=== PATIENT | male | born 1960 | race Caucasian/White ===

== ENCOUNTER 2020-02-24 19:43 | Inpatient (IN) | payer MEDICAID ==
[~2020-02-24] VITALS: Ht 165.1 cm; Wt 69.9 kg
[2020-02-24] MEDS ORDERED: LISI-660 PO (19:58)
[2020-02-24] MEDS ORDERED: METF-961 PO (19:58)
[2020-02-24] MEDS ORDERED: SODIUM CHLORIDE 0.9% 2,000 ML IV ONE (20:45)
[2020-02-24] MEDS ORDERED: ACETAMINOPHEN 500 MG TABLET PO ONE (21:00)
[2020-02-24] MEDS ORDERED: KETOROLAC TROMETHAMINE 30 MG/ML VIAL IVP ONE (21:00)
[2020-02-24 21:18] LABS: HEMATOCRIT 34.3 % (41-53); HEMOGLOBIN 11.8 g/dL (13.5-17.5); MEAN CORPUSCULAR HEMOGLOBIN 32.5 pg (26.0-34.0); MEAN CORPUSCULAR HGB CONC 34.4 G/dL (31.0-37.0); MEAN CORPUSCULAR VOLUME 95 fL (80-100); PLATELET COUNT (AUTO) 171 K/uL (150-450); RED BLOOD CELL COUNT(AUTO) 3.63 MIL/uL (4.50-5.90); RED CELL DISTRIBUTION WIDTH 12.4 % (11.5-14.5)
[2020-02-24 21:28] LABS: CALCIUM, TOTAL 9.1 mg/dL (8.8-10.5); CREATININE 1.43 mg/dL (0.60-1.30); POTASSIUM 3.6 mmol/L (3.5-5.1)
[2020-02-24 21:38] LABS: LACTIC ACID 1.9 mmol/L (0.4-2.0)
[2020-02-24 21:51] LABS: BILIRUBIN,TOTAL 0.9 mg/dL (0.1-1.0); TOTAL PROTEIN, SERUM 8.3 g/dL (6.4-8.2)
[2020-02-24 22:06] LABS: BAND NEUTROPHILS % (MANUAL) 20 % (0-5); LYMPHOCYTES % (MANUAL) 3 % (22-44); MONOCYTES % (MANUAL) 5 % (2-9); SEGMENTED NEUTROPHILS % 72 % (40-70)
[2020-02-24] MEDS ORDERED: CefTRIAXone 1 GM/DEXTROSE 50 ML IV ONE (23:45)
[2020-02-24 23:47] LABS: APPEARANCE,URINE CLEAR (CLEAR); BILIRUBIN,URINE NEGATIVE (NEGATIVE); GLUCOSE, URINE (UA) NEGATIVE (NEGATIVE); KETONES,URINE NEGATIVE (NEGATIVE); LEUKOCYTE ESTERASE ,URINE NEGATIVE (NEGATIVE); NITRATE,URINE NEGATIVE (NEGATIVE); OCCULT BLOOD,URINE NEGATIVE (NEGATIVE); PROTEIN,URINE SEE CONFIRM (NEGATIVE); UROBILINOGEN,URINE 0.2 mg/dL (<=1.0)
[2020-02-25 00:04] LABS: SULFOSALICYLIC ACID,URINE 3+ (Negative)
[2020-02-25 00:05] LABS: BACTERIA,URINE None Seen /HPF (None Seen); RBC,URINE 0-2 /HPF (0-2); SQUAMOUS EPITHELIAL CELL,UR Rare /LPF (None Seen); WBC,URINE None Seen /HPF (0-5)
[2020-02-25] MEDS ORDERED: VANCOMYCIN HCL 1 GM/D5% WATER 200 ML IV ONE (00:15)
[2020-02-25] MEDS ORDERED: ZOLPIDEM TARTRATE 5 MG TABLET PO PRN (00:30)
[2020-02-25] MEDS ORDERED: MAGNESIUM HYDROXIDE SUSPENSION 30 ML UDCUP PO PRN (00:30)
[2020-02-25] MEDS ORDERED: BISACODYL 10 MG RECTAL RECTAL SUPPOSITORY PR PRN (00:30)
[2020-02-25] MEDS ORDERED: ALBUTEROL SULFATE 2.5 MG/0.5 ML NEB SOLUTION NEB PRN (00:30)
[2020-02-25] MEDS ORDERED: IPRATROPIUM BROMIDE 0.5 MG/2.5 ML NEB SOLUTION NEB PRN (00:30)
[2020-02-25 02:53] VITALS: BP 134/54
[2020-02-25] MEDS: ONDANSETRON HCL 4 MG/2 ML VIAL IVP PRN (04:05)
[2020-02-25] MEDS: ACETAMINOPHEN 325 MG TABLET PO PRN ×3 (04:09→18:40)
[2020-02-25 06:39] VITALS: BP 107/56
[2020-02-25 07:01] LABS: GLUCOMETER DEV NAME(LOC) 6S.1; GLUCOSE,POINT OF CARE 138 MG/DL (70-110)
[2020-02-25 07:55] VITALS: BP 97/56
[2020-02-25] MEDS: HEPARIN SODIUM,PORCINE 5,000 UNITS/ML VIAL SQ SCH ×2 (08:57→16:22)
[2020-02-25] MEDS ORDERED: DEXTROSE 50%-WATER 25 GM/50 ML SYRINGE IVP PRN (10:15)
[2020-02-25] MEDS: SODIUM CHLORIDE 0.45% 1,000 ML IV SCH (11:21)
[2020-02-25 13:10] VITALS: BP 120/70
[2020-02-25] MEDS: LEVOFLOXACIN 500 MG/D5% WATER 100 ML IV SCH (13:11)
[2020-02-25] MEDS: MetroNIDAZOLE 500 MG/NACL 100 ML IV SCH ×2 (14:33→21:25)
[2020-02-25 17:32] LABS: GLUCOMETER DEV NAME(LOC) 6S.1; GLUCOSE,POINT OF CARE 132 MG/DL (70-110)
[2020-02-25 19:58] LABS: GLUCOMETER DEV NAME(LOC) 4E.2; GLUCOSE,POINT OF CARE 113 MG/DL (70-110)
[2020-02-25 20:11] VITALS: BP 115/69
[2020-02-25 21:19] LABS: HEMATOCRIT 31.6 % (41-53); HEMOGLOBIN 10.4 g/dL (13.5-17.5); MEAN CORPUSCULAR HEMOGLOBIN 31.3 pg (26.0-34.0); MEAN CORPUSCULAR VOLUME 95 fL (80-100); PLATELET COUNT (AUTO) 147 K/uL (150-450); RED BLOOD CELL COUNT(AUTO) 3.33 MIL/uL (4.50-5.90); RED CELL DISTRIBUTION WIDTH 13.3 % (11.5-14.5)
[2020-02-25 21:28] LABS: ANION GAP 9 mmol/L (8-16); CARBON DIOXIDE 23 mmol/L (22-29); CHLORIDE 102 mmol/L (98-107); CREATININE 1.08 mg/dL (0.60-1.30); GLOMERULAR FILTR. RATE CALC > 60 mL/min (>60); GLUCOSE,RANDOM 120 mg/dL (70-110); POTASSIUM 3.9 mmol/L (3.5-5.1); SODIUM SERUM 134 mmol/L (136-145); UREA NITROGEN, BLOOD 23 mg/dL (7-18)
[2020-02-25 21:36] LABS: ALBUMIN 2.9 g/dL (3.4-5.0); ALKALINE PHOSPHATASE 65 U/L (46-116); ASPARTATE AMINOTRANSFERASE 49 U/L (15-37); BAND NEUTROPHILS % (MANUAL) 16 % (0-5); BILIRUBIN,TOTAL 0.6 mg/dL (0.1-1.0); LYMPHOCYTES % (MANUAL) 6 % (22-44); MONOCYTES % (MANUAL) 4 % (2-9); SEGMENTED NEUTROPHILS % 74 % (40-70); TOTAL PROTEIN, SERUM 6.7 g/dL (6.4-8.2)
[2020-02-25 21:37] LABS: PLATELET MORPHOLOGY COMMENT LARGE PLTS PRESENT
[2020-02-25 21:52] LABS: GLUCOMETER DEV NAME(LOC) 4E.2; GLUCOSE,POINT OF CARE 106 MG/DL (70-110)
[2020-02-25 22:18] LABS: ALANINE AMINOTRANSFERASE 86 U/L (12-78)
[2020-02-25] MEDS ORDERED: CefTRIAXone 1 GM/DEXTROSE 50 ML IV SCH (23:00)
[2020-02-25 23:54] VITALS: BP 100/57
[2020-02-26] MEDS: HEPARIN SODIUM,PORCINE 5,000 UNITS/ML VIAL SQ SCH ×3 (00:38→16:14)
[2020-02-26 04:33] VITALS: BP 121/63
[2020-02-26] MEDS: ACETAMINOPHEN 325 MG TABLET PO PRN (04:59)
[2020-02-26] MEDS: MetroNIDAZOLE 500 MG/NACL 100 ML IV SCH (05:00)
[2020-02-26] MEDS: SODIUM CHLORIDE 0.45% 1,000 ML IV SCH ×2 (05:00→21:00)
[2020-02-26 05:27] LABS: GLUCOMETER DEV NAME(LOC) 4E.2; GLUCOSE,POINT OF CARE 121 MG/DL (70-110)
[2020-02-26 06:32] LABS: HEMATOCRIT 29.6 % (41-53); HEMOGLOBIN 10.4 g/dL (13.5-17.5); MEAN CORPUSCULAR HEMOGLOBIN 32.9 pg (26.0-34.0); MEAN CORPUSCULAR VOLUME 94 fL (80-100); PLATELET COUNT (AUTO) 148 K/uL (150-450); RED BLOOD CELL COUNT(AUTO) 3.15 MIL/uL (4.50-5.90)
[2020-02-26 06:43] LABS: ALANINE AMINOTRANSFERASE 76 U/L (12-78); ALBUMIN 2.8 g/dL (3.4-5.0); ALKALINE PHOSPHATASE 64 U/L (46-116); ANION GAP 11 mmol/L (8-16); ASPARTATE AMINOTRANSFERASE 40 U/L (15-37); BILIRUBIN,TOTAL 0.4 mg/dL (0.1-1.0); CARBON DIOXIDE 21 mmol/L (22-29); CHLORIDE 101 mmol/L (98-107); CREATININE 1.09 mg/dL (0.60-1.30); GLOMERULAR FILTR. RATE CALC > 60 mL/min (>60); GLUCOSE,RANDOM 139 mg/dL (70-110); POTASSIUM 3.4 mmol/L (3.5-5.1); SODIUM SERUM 133 mmol/L (136-145); TOTAL PROTEIN, SERUM 6.4 g/dL (6.4-8.2); UREA NITROGEN, BLOOD 17 mg/dL (7-18)
[2020-02-26 07:20] VITALS: BP 114/61
[2020-02-26 08:34] LABS: BAND NEUTROPHILS % (MANUAL) 8 % (0-5); LYMPHOCYTES % (MANUAL) 20 % (22-44); MONOCYTES % (MANUAL) 1 % (2-9); SEGMENTED NEUTROPHILS % 71 % (40-70)
[2020-02-26] MEDS: LISINOPRIL 5 MG TABLET PO SCH (09:02)
[2020-02-26 11:00] VITALS: BP 106/52
[2020-02-26] MEDS: LEVOFLOXACIN 500 MG/D5% WATER 100 ML IV SCH (12:11)
[2020-02-26] MEDS: INSULIN LISPRO 100 UNITS/ML SQ PRN ×3 (12:39→21:10)
[2020-02-26 13:26] LABS: GLUCOMETER DEV NAME(LOC) 4E.2; GLUCOSE,POINT OF CARE 191 MG/DL (70-110)
[2020-02-26] MEDS: PIPERACILLIN/TAZO 3.375 GM/D5W 50 ML IV SCH ×2 (14:34→17:15)
[2020-02-26 15:10] VITALS: BP 110/54
[2020-02-26 17:30] LABS: GLUCOMETER DEV NAME(LOC) 4E.2; GLUCOSE,POINT OF CARE 160 MG/DL (70-110)
[2020-02-26 20:45] VITALS: BP 138/76
[2020-02-26 21:20] LABS: GLUCOMETER DEV NAME(LOC) 4E.2; GLUCOSE,POINT OF CARE 193 MG/DL (70-110)
[2020-02-27] MEDS: HEPARIN SODIUM,PORCINE 5,000 UNITS/ML VIAL SQ SCH ×3 (00:26→15:53)
[2020-02-27] MEDS: PIPERACILLIN/TAZO 3.375 GM/D5W 50 ML IV SCH ×4 (00:27→18:11)
[2020-02-27 04:44] VITALS: BP 134/66
[2020-02-27 06:30] LABS: GLUCOMETER DEV NAME(LOC) 6S.1; GLUCOSE,POINT OF CARE 156 MG/DL (70-110)
[2020-02-27] MEDS: INSULIN LISPRO 100 UNITS/ML SQ PRN ×4 (06:32→20:36)
[2020-02-27 06:33] LABS: BASOPHILS % (AUTO) 0.3 % (0.0-2.0); EOSINOPHILS % (AUTO) 0.7 % (1.0-6.0); HEMATOCRIT 31.2 % (41-53); HEMOGLOBIN 10.9 g/dL (13.5-17.5); LYMPHOCYTES % (AUTO) 15.3 % (22.0-44.0); MEAN CORPUSCULAR HEMOGLOBIN 32.6 pg (26.0-34.0); MEAN CORPUSCULAR VOLUME 93 fL (80-100); MONOCYTES # (AUTO) 0.4 K/uL (0.1-1.0); MONOCYTES % (AUTO) 6.5 % (2.0-9.0); NEUTROPHILS # (AUTO) 5.1 K/uL (1.8-7.7); NEUTROPHILS % (AUTO) 77.2 % (40.0-70.0); PLATELET COUNT (AUTO) 158 K/uL (150-450); RED BLOOD CELL COUNT(AUTO) 3.34 MIL/uL (4.50-5.90); RED CELL DISTRIBUTION WIDTH 13.3 % (11.5-14.5)
[2020-02-27 06:54] LABS: ALANINE AMINOTRANSFERASE 60 U/L (12-78); ALBUMIN 2.9 g/dL (3.4-5.0); ALKALINE PHOSPHATASE 80 U/L (46-116); ANION GAP 9 mmol/L (8-16); ASPARTATE AMINOTRANSFERASE 30 U/L (15-37); BILIRUBIN,TOTAL 0.4 mg/dL (0.1-1.0); CALCIUM, TOTAL 8.5 mg/dL (8.8-10.5); CARBON DIOXIDE 23 mmol/L (22-29); CHLORIDE 102 mmol/L (98-107); CREATININE 1.12 mg/dL (0.60-1.30); GLOMERULAR FILTR. RATE CALC > 60 mL/min (>60); GLUCOSE,RANDOM 156 mg/dL (70-110); POTASSIUM 3.6 mmol/L (3.5-5.1); SODIUM SERUM 134 mmol/L (136-145); TOTAL PROTEIN, SERUM 6.8 g/dL (6.4-8.2); UREA NITROGEN, BLOOD 11 mg/dL (7-18)
[2020-02-27 08:26] VITALS: BP 128/67
[2020-02-27] MEDS: LISINOPRIL 5 MG TABLET PO SCH (08:33)
[2020-02-27 11:51] VITALS: BP 100/66
[2020-02-27] MEDS: LEVOFLOXACIN 500 MG/D5% WATER 100 ML IV SCH (12:51)
[2020-02-27 13:59] LABS: GLUCOMETER DEV NAME(LOC) 6S.1; GLUCOSE,POINT OF CARE 202 MG/DL (70-110)
[2020-02-27] MEDS: SODIUM CHLORIDE 0.45% 1,000 ML IV SCH (14:39)
[2020-02-27 15:10] VITALS: BP 141/73
[2020-02-27 18:58] LABS: GLUCOMETER DEV NAME(LOC) 4E.2; GLUCOSE,POINT OF CARE 213 MG/DL (70-110)
[2020-02-27 19:35] VITALS: BP 100/56
[2020-02-27 21:44] LABS: GLUCOMETER DEV NAME(LOC) 6S.1; GLUCOSE,POINT OF CARE 208 MG/DL (70-110)
[2020-02-28] VITALS (7 sets, daily range): BP systolic 113–153; BP diastolic 56–73
[2020-02-28] MEDS: HEPARIN SODIUM,PORCINE 5,000 UNITS/ML VIAL SQ SCH ×4 (00:04→23:37)
[2020-02-28] MEDS: PIPERACILLIN/TAZO 3.375 GM/D5W 50 ML IV SCH ×3 (00:04→12:30)
[2020-02-28] MEDS: INSULIN LISPRO 100 UNITS/ML SQ PRN ×4 (05:54→20:30)
[2020-02-28] MEDS: SODIUM CHLORIDE 0.45% 1,000 ML IV SCH (06:00)
[2020-02-28 06:46] LABS: GLUCOMETER DEV NAME(LOC) 6S.1; GLUCOSE,POINT OF CARE 144 MG/DL (70-110)
[2020-02-28 06:47] LABS: BASOPHILS % (AUTO) 0.6 % (0.0-2.0); EOSINOPHILS % (AUTO) 0.8 % (1.0-6.0); HEMATOCRIT 32.6 % (41-53); HEMOGLOBIN 11.2 g/dL (13.5-17.5); LYMPHOCYTES # (AUTO) 1.2 K/uL (1.0-4.8); LYMPHOCYTES % (AUTO) 21.8 % (22.0-44.0); MEAN CORPUSCULAR HEMOGLOBIN 32.1 pg (26.0-34.0); MEAN CORPUSCULAR HGB CONC 34.2 G/dL (31.0-37.0); MEAN CORPUSCULAR VOLUME 94 fL (80-100); MONOCYTES # (AUTO) 0.4 K/uL (0.1-1.0); NEUTROPHILS # (AUTO) 3.7 K/uL (1.8-7.7); NEUTROPHILS % (AUTO) 68.8 % (40.0-70.0); PLATELET COUNT (AUTO) 178 K/uL (150-450); RED BLOOD CELL COUNT(AUTO) 3.48 MIL/uL (4.50-5.90); RED CELL DISTRIBUTION WIDTH 12.9 % (11.5-14.5)
[2020-02-28 07:21] LABS: ANION GAP 9 mmol/L (8-16); CARBON DIOXIDE 26 mmol/L (22-29); CHLORIDE 102 mmol/L (98-107); CREATININE 1.08 mg/dL (0.60-1.30); GLUCOSE,RANDOM 158 mg/dL (70-110); POTASSIUM 3.7 mmol/L (3.5-5.1); SODIUM SERUM 137 mmol/L (136-145); UREA NITROGEN, BLOOD 13 mg/dL (7-18)
[2020-02-28 07:22] LABS: ALANINE AMINOTRANSFERASE 79 U/L (12-78); ALKALINE PHOSPHATASE 97 U/L (46-116); ASPARTATE AMINOTRANSFERASE 53 U/L (15-37); BILIRUBIN,TOTAL 0.3 mg/dL (0.1-1.0); GLOMERULAR FILTR. RATE CALC > 60 mL/min (>60); TOTAL PROTEIN, SERUM 7.1 g/dL (6.4-8.2)
[2020-02-28] MEDS: LISINOPRIL 5 MG TABLET PO SCH (08:24)
[2020-02-28] MEDS: LEVOFLOXACIN 500 MG/D5% WATER 100 ML IV SCH (13:13)
[2020-02-28 15:08] LABS: GLUCOMETER DEV NAME(LOC) 6S.1; GLUCOSE,POINT OF CARE 193 MG/DL (70-110)
[2020-02-28] MEDS ORDERED: TraMADol HCL 50 MG TABLET PO PRN (17:45)
[2020-02-28 19:00] LABS: GLUCOMETER DEV NAME(LOC) 4E.2; GLUCOSE,POINT OF CARE 212 MG/DL (70-110)
[2020-02-28] MEDS: HYDROCODONE/ACETAMINOPHEN 5-325 MG TABLET PO PRN (20:27)
[2020-02-29 04:37] VITALS: BP 136/75
[2020-02-29] MEDS ORDERED: IOVERSOL 350 MG/ML 100 ML VIAL ONE (04:39)
[2020-02-29] MEDS ORDERED: SODIUM CHLORIDE 0.9% 100 ML ONE (04:39)
[2020-02-29 04:46] LABS: GLUCOMETER DEV NAME(LOC) 4E.2; GLUCOSE,POINT OF CARE 166 MG/DL (70-110)
[2020-02-29] MEDS: ONDANSETRON HCL 4 MG/2 ML VIAL IVP PRN (04:46)
[2020-02-29 07:00] LABS: BASOPHILS % (AUTO) 0.8 % (0.0-2.0); EOSINOPHILS % (AUTO) 1.9 % (1.0-6.0); HEMATOCRIT 34.4 % (41-53); HEMOGLOBIN 11.6 g/dL (13.5-17.5); LYMPHOCYTES # (AUTO) 1.3 K/uL (1.0-4.8); LYMPHOCYTES % (AUTO) 30.4 % (22.0-44.0); MEAN CORPUSCULAR HEMOGLOBIN 31.6 pg (26.0-34.0); MEAN CORPUSCULAR HGB CONC 33.6 G/dL (31.0-37.0); MEAN CORPUSCULAR VOLUME 94 fL (80-100); MONOCYTES # (AUTO) 0.5 K/uL (0.1-1.0); MONOCYTES % (AUTO) 10.9 % (2.0-9.0); NEUTROPHILS # (AUTO) 2.4 K/uL (1.8-7.7); PLATELET COUNT (AUTO) 187 K/uL (150-450); RED BLOOD CELL COUNT(AUTO) 3.65 MIL/uL (4.50-5.90)
[2020-02-29 07:40] LABS: ALANINE AMINOTRANSFERASE 178 U/L (12-78); ALBUMIN 3.2 g/dL (3.4-5.0); ALKALINE PHOSPHATASE 102 U/L (46-116); ANION GAP 9 mmol/L (8-16); ASPARTATE AMINOTRANSFERASE 141 U/L (15-37); BILIRUBIN,TOTAL 0.4 mg/dL (0.1-1.0); CALCIUM, TOTAL 9.3 mg/dL (8.8-10.5); CARBON DIOXIDE 26 mmol/L (22-29); CHLORIDE 100 mmol/L (98-107); CREATININE 1.02 mg/dL (0.60-1.30); GLOMERULAR FILTR. RATE CALC > 60 mL/min (>60); GLUCOSE,RANDOM 144 mg/dL (70-110); POTASSIUM 3.5 mmol/L (3.5-5.1); SODIUM SERUM 135 mmol/L (136-145); TOTAL PROTEIN, SERUM 7.5 g/dL (6.4-8.2); UREA NITROGEN, BLOOD 12 mg/dL (7-18)
[2020-02-29 08:02] LABS: GLUCOMETER DEV NAME(LOC) 6S.1; GLUCOSE,POINT OF CARE 132 MG/DL (70-110)
[2020-02-29] MEDS: LISINOPRIL 5 MG TABLET PO SCH (08:11)
[2020-02-29] MEDS: HEPARIN SODIUM,PORCINE 5,000 UNITS/ML VIAL SQ SCH ×3 (08:12→23:27)
[2020-02-29 08:33] VITALS: BP 129/72
[2020-02-29] MEDS: INSULIN LISPRO 100 UNITS/ML SQ PRN ×3 (11:41→22:03)
[2020-02-29] MEDS: LEVOFLOXACIN 500 MG/D5% WATER 100 ML IV SCH (13:08)
[2020-02-29] MEDS: MetroNIDAZOLE 500 MG/NACL 100 ML IV SCH ×2 (15:15→21:51)
[2020-02-29 15:31] VITALS: BP 129/65
[2020-02-29 17:55] LABS: GLUCOMETER DEV NAME(LOC) 6S.1; GLUCOSE,POINT OF CARE 257 MG/DL (70-110)
[2020-02-29 17:56] LABS: GLUCOMETER DEV NAME(LOC) 6S.1; GLUCOSE,POINT OF CARE 190 MG/DL (70-110)
[2020-02-29 19:55] VITALS: BP 99/59
[2020-02-29] MEDS: ACETAMINOPHEN 325 MG TABLET PO PRN (20:10)
[2020-02-29 23:00] LABS: GLUCOMETER DEV NAME(LOC) 4E.2; GLUCOSE,POINT OF CARE 187 MG/DL (70-110)
[2020-02-29 23:31] VITALS: BP 106/57
[2020-03-01 05:04] VITALS: BP 117/63
[2020-03-01] MEDS: MetroNIDAZOLE 500 MG/NACL 100 ML IV SCH ×3 (05:29→21:38)
[2020-03-01] MEDS ORDERED: SODIUM CHLORIDE 0.9% 1,000 ML ONE ×2 (05:36→10:38)
[2020-03-01 06:19] LABS: GLUCOMETER DEV NAME(LOC) 4E.2; GLUCOSE,POINT OF CARE 138 MG/DL (70-110)
[2020-03-01 06:30] LABS: BASOPHILS % (AUTO) 0.4 % (0.0-2.0); EOSINOPHILS % (AUTO) 1.3 % (1.0-6.0); HEMATOCRIT 32.7 % (41-53); HEMOGLOBIN 11.4 g/dL (13.5-17.5); LYMPHOCYTES # (AUTO) 1.7 K/uL (1.0-4.8); LYMPHOCYTES % (AUTO) 23.5 % (22.0-44.0); MEAN CORPUSCULAR HEMOGLOBIN 32.4 pg (26.0-34.0); MEAN CORPUSCULAR HGB CONC 34.9 G/dL (31.0-37.0); MEAN CORPUSCULAR VOLUME 93 fL (80-100); MONOCYTES # (AUTO) 0.6 K/uL (0.1-1.0); NEUTROPHILS # (AUTO) 4.9 K/uL (1.8-7.7); NEUTROPHILS % (AUTO) 66.8 % (40.0-70.0); PLATELET COUNT (AUTO) 211 K/uL (150-450); RED BLOOD CELL COUNT(AUTO) 3.53 MIL/uL (4.50-5.90)
[2020-03-01 06:52] LABS: ALANINE AMINOTRANSFERASE 156 U/L (12-78); ALBUMIN 3.2 g/dL (3.4-5.0); ALKALINE PHOSPHATASE 94 U/L (46-116); ANION GAP 7 mmol/L (8-16); ASPARTATE AMINOTRANSFERASE 84 U/L (15-37); BILIRUBIN,TOTAL 0.4 mg/dL (0.1-1.0); CALCIUM, TOTAL 9.4 mg/dL (8.8-10.5); CARBON DIOXIDE 27 mmol/L (22-29); CHLORIDE 101 mmol/L (98-107); CREATININE 1.11 mg/dL (0.60-1.30); GLOMERULAR FILTR. RATE CALC > 60 mL/min (>60); GLUCOSE,RANDOM 162 mg/dL (70-110); POTASSIUM 3.8 mmol/L (3.5-5.1); SODIUM SERUM 135 mmol/L (136-145); TOTAL PROTEIN, SERUM 7.3 g/dL (6.4-8.2); UREA NITROGEN, BLOOD 18 mg/dL (7-18)
[2020-03-01] MEDS: HEPARIN SODIUM,PORCINE 5,000 UNITS/ML VIAL SQ SCH ×3 (07:47→23:21)
[2020-03-01] MEDS: LISINOPRIL 5 MG TABLET PO SCH (08:04)
[2020-03-01 08:15] VITALS: BP 133/66
[2020-03-01] MEDS ORDERED: IOTHALAMATE MEGLUMINE 600 MG/ML 50 ML VIAL IVP ONE (10:38)
[2020-03-01 11:34] LABS: PROTHROMBIN TIME 10.1 SEC (9.4-11.6)
[2020-03-01] MEDS ORDERED: ONDANSETRON HCL 4 MG/2 ML VIAL IVP ONE (12:00)
[2020-03-01] MEDS ORDERED: DEXAMETHASONE SOD PHOS 4 MG/ML VIAL IVP ONE (12:00)
[2020-03-01] MEDS ORDERED: PROPOFOL 1% 20 ML VIAL IVP ONE (12:00)
[2020-03-01] MEDS ORDERED: FentaNYL CITRATE-PF 100 MCG/2 ML VIAL IVP ONE (12:00)
[2020-03-01] MEDS ORDERED: LIDOCAINE/PF 2% 5 ML VIAL INJ ONE (12:00)
[2020-03-01] MEDS ORDERED: MIDAZOLAM HCL 2 MG/2 ML VIAL IVP ONE (12:00)
[2020-03-01 13:21] VITALS: BP 144/69
[2020-03-01] MEDS: MORPHINE SULFATE 2 MG/ML SYRINGE IVP PRN ×2 (13:30→15:47)
[2020-03-01] MEDS: LEVOFLOXACIN 500 MG/D5% WATER 100 ML IV SCH (13:31)
[2020-03-01 15:05] VITALS: BP 124/60
[2020-03-01] MEDS: ONDANSETRON HCL 4 MG/2 ML VIAL IVP PRN (17:39)
[2020-03-01] MEDS: HYDROCODONE/ACETAMINOPHEN 5-325 MG TABLET PO PRN (17:40)
[2020-03-01] MEDS: INSULIN LISPRO 100 UNITS/ML SQ PRN ×2 (17:44→20:33)
[2020-03-01 18:38] LABS: GLUCOMETER DEV NAME(LOC) 4E.2; GLUCOSE,POINT OF CARE 192 MG/DL (70-110)
[2020-03-01 20:00] VITALS: BP 127/57
[2020-03-01] MEDS: OXYGEN THERAPY IH SCH (20:00)
[2020-03-01] MEDS: SODIUM CHLORIDE 0.9% 1,000 ML IV SCH (21:38)
[2020-03-01 22:01] LABS: GLUCOMETER DEV NAME(LOC) 6S.1; GLUCOSE,POINT OF CARE 184 MG/DL (70-110)
[2020-03-01 23:50] VITALS: BP 111/58
[2020-03-02] MEDS: ONDANSETRON HCL 4 MG/2 ML VIAL IVP PRN (04:06)
[2020-03-02 05:34] VITALS: BP 138/66
[2020-03-02] MEDS: MetroNIDAZOLE 500 MG/NACL 100 ML IV SCH ×3 (06:08→22:16)
[2020-03-02] MEDS: INSULIN LISPRO 100 UNITS/ML SQ PRN ×4 (06:14→20:43)
[2020-03-02 06:42] LABS: BASOPHILS % (AUTO) 0.4 % (0.0-2.0); EOSINOPHILS % (AUTO) 0.3 % (1.0-6.0); HEMATOCRIT 31.9 % (41-53); HEMOGLOBIN 10.8 g/dL (13.5-17.5); LYMPHOCYTES # (AUTO) 0.9 K/uL (1.0-4.8); MEAN CORPUSCULAR HEMOGLOBIN 31.9 pg (26.0-34.0); MEAN CORPUSCULAR HGB CONC 33.9 G/dL (31.0-37.0); MEAN CORPUSCULAR VOLUME 94 fL (80-100); MONOCYTES # (AUTO) 0.5 K/uL (0.1-1.0); NEUTROPHILS # (AUTO) 3.9 K/uL (1.8-7.7); NEUTROPHILS % (AUTO) 73.3 % (40.0-70.0); PLATELET COUNT (AUTO) 223 K/uL (150-450); RED BLOOD CELL COUNT(AUTO) 3.39 MIL/uL (4.50-5.90); RED CELL DISTRIBUTION WIDTH 13.1 % (11.5-14.5)
[2020-03-02 06:55] LABS: ALANINE AMINOTRANSFERASE 435 U/L (12-78); ALKALINE PHOSPHATASE 217 U/L (46-116); ANION GAP 9 mmol/L (8-16); ASPARTATE AMINOTRANSFERASE 367 U/L (15-37); BILIRUBIN,TOTAL 2.7 mg/dL (0.1-1.0); CALCIUM, TOTAL 8.9 mg/dL (8.8-10.5); CARBON DIOXIDE 28 mmol/L (22-29); CHLORIDE 102 mmol/L (98-107); CREATININE 0.98 mg/dL (0.60-1.30); GLOMERULAR FILTR. RATE CALC > 60 mL/min (>60); GLUCOSE,RANDOM 163 mg/dL (70-110); LIPASE 5365 U/L (73-393); POTASSIUM 3.5 mmol/L (3.5-5.1); SODIUM SERUM 139 mmol/L (136-145); UREA NITROGEN, BLOOD 12 mg/dL (7-18)
[2020-03-02 06:58] LABS: GLUCOMETER DEV NAME(LOC) 4E.2; GLUCOSE,POINT OF CARE 149 MG/DL (70-110)
[2020-03-02 07:52] VITALS: BP 147/75
[2020-03-02] MEDS: LISINOPRIL 5 MG TABLET PO SCH (08:21)
[2020-03-02] MEDS: HEPARIN SODIUM,PORCINE 5,000 UNITS/ML VIAL SQ SCH ×3 (08:21→23:42)
[2020-03-02 10:58] LABS: AMYLASE 1157 U/L (25-115)
[2020-03-02] MEDS: SODIUM CHLORIDE 0.9% 1,000 ML IV SCH ×2 (11:40→22:15)
[2020-03-02 12:11] LABS: GLUCOMETER DEV NAME(LOC) 6S.1; GLUCOSE,POINT OF CARE 146 MG/DL (70-110)
[2020-03-02] MEDS: LEVOFLOXACIN 500 MG/D5% WATER 100 ML IV SCH (14:53)
[2020-03-02 19:40] VITALS: BP 136/78
[2020-03-02] MEDS: OXYGEN THERAPY IH SCH (20:00)
[2020-03-02] MEDS: HYDROCODONE/ACETAMINOPHEN 5-325 MG TABLET PO PRN (22:20)
[2020-03-02 23:45] VITALS: BP 129/64
[2020-03-03 05:00] VITALS: BP 140/71
[2020-03-03 05:36] LABS: GLUCOMETER DEV NAME(LOC) 6S.1; GLUCOSE,POINT OF CARE 157 MG/DL (70-110)
[2020-03-03] MEDS: MetroNIDAZOLE 500 MG/NACL 100 ML IV SCH ×3 (05:57→21:17)
[2020-03-03 06:24] LABS: BASOPHILS % (AUTO) 1.5 % (0.0-2.0); EOSINOPHILS % (AUTO) 1.8 % (1.0-6.0); HEMATOCRIT 31.2 % (41-53); LYMPHOCYTES # (AUTO) 1.4 K/uL (1.0-4.8); LYMPHOCYTES % (AUTO) 27.7 % (22.0-44.0); MEAN CORPUSCULAR HGB CONC 35.2 G/dL (31.0-37.0); MEAN CORPUSCULAR VOLUME 94 fL (80-100); MONOCYTES # (AUTO) 0.5 K/uL (0.1-1.0); MONOCYTES % (AUTO) 9.3 % (2.0-9.0); NEUTROPHILS # (AUTO) 3.1 K/uL (1.8-7.7); NEUTROPHILS % (AUTO) 59.7 % (40.0-70.0); PLATELET COUNT (AUTO) 249 K/uL (150-450); RED BLOOD CELL COUNT(AUTO) 3.33 MIL/uL (4.50-5.90); RED CELL DISTRIBUTION WIDTH 13.2 % (11.5-14.5)
[2020-03-03 06:39] LABS: ALANINE AMINOTRANSFERASE 307 U/L (12-78); ALKALINE PHOSPHATASE 189 U/L (46-116); ANION GAP 7 mmol/L (8-16); ASPARTATE AMINOTRANSFERASE 155 U/L (15-37); BILIRUBIN,TOTAL 0.6 mg/dL (0.1-1.0); CALCIUM, TOTAL 8.4 mg/dL (8.8-10.5); CARBON DIOXIDE 27 mmol/L (22-29); CHLORIDE 103 mmol/L (98-107); CREATININE 0.93 mg/dL (0.60-1.30); GLOMERULAR FILTR. RATE CALC > 60 mL/min (>60); GLUCOSE,RANDOM 142 mg/dL (70-110); POTASSIUM 3.4 mmol/L (3.5-5.1); SODIUM SERUM 137 mmol/L (136-145); TOTAL PROTEIN, SERUM 6.7 g/dL (6.4-8.2); UREA NITROGEN, BLOOD 10 mg/dL (7-18)
[2020-03-03 06:46] LABS: GLUCOMETER DEV NAME(LOC) 6S.1; GLUCOSE,POINT OF CARE 118 MG/DL (70-110)
[2020-03-03 06:46] LABS: GLUCOMETER DEV NAME(LOC) 4E.2; GLUCOSE,POINT OF CARE 142 MG/DL (70-110)
[2020-03-03 07:51] VITALS: BP 151/75
[2020-03-03] MEDS: OXYGEN THERAPY IH SCH ×2 (08:00→20:00)
[2020-03-03] MEDS: HEPARIN SODIUM,PORCINE 5,000 UNITS/ML VIAL SQ SCH ×3 (08:00→23:59)
[2020-03-03] MEDS: LISINOPRIL 5 MG TABLET PO SCH (08:24)
[2020-03-03] MEDS: SODIUM CHLORIDE 0.9% 1,000 ML IV SCH ×2 (08:33→21:17)
[2020-03-03] MEDS ORDERED: RINGERS SOLUTION,LACTATED 1,000 ML IV ONE ×2 (09:54→12:00)
[2020-03-03] MEDS ORDERED: MAGNESIUM SULFATE 2 GM, MVI, ADULT NO.1 WITH VIT K 10 ML, THIAMINE 100 MG, FOLIC ACID 1... IV ONE ×5 (10:15)
[2020-03-03] MEDS ORDERED: MEPERIDINE-PF 25 MG/ML VIAL IVP PRN ×2 (10:30→14:30)
[2020-03-03] MEDS ORDERED: FentaNYL CITRATE-PF 100 MCG/2 ML VIAL IVP PRN ×2 (10:30→14:30)
[2020-03-03] MEDS ORDERED: HYDROmorphone 2 MG/ML SYRINGE IVP PRN ×2 (10:30→14:30)
[2020-03-03] MEDS ORDERED: MIDAZOLAM HCL 2 MG/2 ML VIAL IVP ONE (12:00)
[2020-03-03] MEDS ORDERED: KETOROLAC TROMETHAMINE 60 MG/2 ML VIAL IM ONE (12:00)
[2020-03-03] MEDS ORDERED: PROPOFOL 1% 20 ML VIAL IVP ONE (12:00)
[2020-03-03] MEDS ORDERED: ROCURONIUM BROMIDE 10 MG/ML 5 ML VIAL IVP ONE (12:00)
[2020-03-03] MEDS ORDERED: PHENYLEPHRINE HCL 10 MG/ML VIAL IVP ONE (12:00)
[2020-03-03] MEDS ORDERED: ONDANSETRON HCL 4 MG/2 ML VIAL IVP ONE (12:00)
[2020-03-03] MEDS ORDERED: FentaNYL CITRATE-PF 100 MCG/2 ML VIAL IVP ONE (12:00)
[2020-03-03] MEDS ORDERED: LIDOCAINE/PF 2% 5 ML VIAL INJ ONE (12:00)
[2020-03-03] MEDS ORDERED: DEXAMETHASONE SOD PHOS 4 MG/ML VIAL IVP ONE (12:00)
[2020-03-03] MEDS ORDERED: BUPIVACAINE HCL/PF 0.5% 30 ML VIAL ONE (12:27)
[2020-03-03] MEDS ORDERED: LIDOCAINE 2%/EPI 1:200,000/PF 20 ML VIAL ONE (12:27)
[2020-03-03] MEDS ORDERED: IOHEXOL 240 MG/ML 20 ML VIAL ONE (12:27)
[2020-03-03] MEDS ORDERED: SODIUM CHLORIDE 0.9% 0 ML ONE (12:28)
[2020-03-03] MEDS: LEVOFLOXACIN 500 MG/D5% WATER 100 ML IV SCH (14:00)
[2020-03-03] MEDS ORDERED: HYDROCODONE/ACETAMINOPHEN 5-325 MG TABLET PO PRN (14:45)
[2020-03-03] MEDS ORDERED: MORPHINE SULFATE 2 MG/ML SYRINGE IVP PRN (14:45)
[2020-03-03] MEDS ORDERED: ACETAMINOPHEN 500 MG TABLET PO PRN (14:45)
[2020-03-03] MEDS ORDERED: IBUPROFEN 800 MG TABLET PO PRN (14:45)
[2020-03-03] MEDS ORDERED: LABETALOL HCL 5 MG/ML 20 ML VIAL IVP PRN (15:00)
[2020-03-03] MEDS ORDERED: HYDROmorphone 2 MG/ML SYRINGE ONE (15:02)
[2020-03-03 15:21] LABS: GLUCOMETER DEV NAME(LOC) 4E.2; GLUCOSE,POINT OF CARE 142 MG/DL (70-110)
[2020-03-03 15:30] VITALS: BP 141/60
[2020-03-03] MEDS ORDERED: POTASSIUM CHLORIDE 20 MEQ ER TABLET PO ONE (16:00)
[2020-03-03] MEDS: INSULIN LISPRO 100 UNITS/ML SQ PRN ×2 (17:27→21:24)
[2020-03-03 19:33] VITALS: BP 144/74
[2020-03-03] MEDS ORDERED: OXYGEN THERAPY IH SCH (20:00)
[2020-03-03 21:15] LABS: GLUCOMETER DEV NAME(LOC) 6S.1; GLUCOSE,POINT OF CARE 157 MG/DL (70-110)
[2020-03-03] MEDS: ONDANSETRON HCL 4 MG/2 ML VIAL IVP PRN (21:38)
[2020-03-03 23:00] LABS: GLUCOMETER DEV NAME(LOC) 4E.2; GLUCOSE,POINT OF CARE 180 MG/DL (70-110)
[2020-03-04] VITALS: BP 128/73
[2020-03-04 00:05] VITALS: BP 128/73
[2020-03-04 05:09] VITALS: BP 151/75
[2020-03-04] MEDS: MetroNIDAZOLE 500 MG/NACL 100 ML IV SCH ×2 (05:55→14:00)
[2020-03-04 06:22] LABS: GLUCOMETER DEV NAME(LOC) 6S.1; GLUCOSE,POINT OF CARE 111 MG/DL (70-110)
[2020-03-04 07:05] LABS: ALANINE AMINOTRANSFERASE 273 U/L (12-78); ALKALINE PHOSPHATASE 172 U/L (46-116); ANION GAP 6 mmol/L (8-16); ASPARTATE AMINOTRANSFERASE 119 U/L (15-37); BILIRUBIN,TOTAL 0.6 mg/dL (0.1-1.0); CALCIUM, TOTAL 8.6 mg/dL (8.8-10.5); CARBON DIOXIDE 26 mmol/L (22-29); CHLORIDE 103 mmol/L (98-107); GLOMERULAR FILTR. RATE CALC > 60 mL/min (>60); GLUCOSE,RANDOM 127 mg/dL (70-110); LIPASE 181 U/L (73-393); POTASSIUM 3.6 mmol/L (3.5-5.1); SODIUM SERUM 135 mmol/L (136-145); TOTAL PROTEIN, SERUM 7.1 g/dL (6.4-8.2); UREA NITROGEN, BLOOD 15 mg/dL (7-18)
[2020-03-04 07:35] VITALS: BP 120/66
[2020-03-04] MEDS: OXYGEN THERAPY IH SCH (08:00)
[2020-03-04] MEDS: LISINOPRIL 5 MG TABLET PO SCH (08:41)
[2020-03-04] MEDS: HEPARIN SODIUM,PORCINE 5,000 UNITS/ML VIAL SQ SCH ×2 (08:43→15:30)
[2020-03-04] MEDS: SODIUM CHLORIDE 0.9% 1,000 ML IV SCH (11:13)
[2020-03-04] MEDS: INSULIN LISPRO 100 UNITS/ML SQ PRN (11:35)
[2020-03-04] MEDS ORDERED: METR500 PO (13:04)
[2020-03-04] MEDS ORDERED: LEVO-72 PO (13:04)
[2020-03-04] MEDS: LEVOFLOXACIN 500 MG/D5% WATER 100 ML IV SCH (14:00)
[2020-03-04 15:50] LABS: GLUCOMETER DEV NAME(LOC) 6S.1; GLUCOSE,POINT OF CARE 186 MG/DL (70-110)
== END 2020-03-04 17:05 | disposition home or self-care (01) | DRG 710 ==
LOC: EMS 19:43 → UNDOADMIN 23:45 → 6N 23:45 → 5N 23:45 → 6N 02-27 15:40
PROVIDERS: ADMIT Hospitalist; ATTEND Hospitalist
PROC: 0FC98ZZ Extirpation of Matter from Common Bile Duct, Via Natural or Artificial Opening Endoscopic (ICD-10-PCS; principal; 2020-03-01 12:00)
PROC: 0FT44ZZ Resection of Gallbladder, Percutaneous Endoscopic Approach (ICD-10-PCS; 2020-03-03)
DX: A41.59 Other Gram-negative sepsis (principal); N12 Tubulo-interstitial nephritis, not specified as acute or chronic; N28.9 Disorder of kidney and ureter, unspecified; I10 Essential (primary) hypertension; E11.9 Type 2 diabetes mellitus without complications; Z79.84 Long term (current) use of oral hypoglycemic drugs; D64.9 Anemia, unspecified; E87.6 Hypokalemia; K85.90 Acute pancreatitis without necrosis or infection, unspecified; N30.90 Cystitis, unspecified without hematuria; K80.31 Calculus of bile duct with cholangitis, unspecified, with obstruction; B96.1 Klebsiella pneumoniae [K. pneumoniae] as the cause of diseases classified elsewhere; R80.9 Proteinuria, unspecified; K59.00 Constipation, unspecified; Z20.828 Contact with and (suspected) exposure to other viral communicable diseases
CPT/HCPCS: 71250; 72192; 74150; 74177; 83605; 87040; 87205; 87426; 88304; 93005; 99291; J0690; J0696; J1100; J1170; J1644; J1885; J1956; J2250; J2270; J2370; J2405; J2543; J2704; J3010; J3370; J3411; J3475; J3490; J7030; J7050; J7120; Q9961; Q9966; 36415-L1; 36415-TC; 71045-TC; 87635; U0003-CS

== ENCOUNTER 2020-04-26 11:12 | Emergency (ER) | payer SELFPAY ==
[~2020-04-26] VITALS: Ht 165.1 cm; Wt 70.5 kg
[~2020-04-26 11:12] MED LIST: LEVO-72 PO; LISI-660 PO; METF-961 PO; METR500 PO
[2020-04-26] MEDS ORDERED: HYDROCODONE/ACETAMINOPHEN 5-325 MG TABLET PO ONE (12:30)
[2020-04-26 12:33] LABS: GLUCOSE,POINT OF CARE 115 MG/DL (70-110)
[2020-04-26 14:23] VITALS: BP 147/79
== END 2020-04-26 15:58 | disposition home or self-care (01) ==
LOC: EMS 11:18
DX: S43.401A Unspecified sprain of right shoulder joint, initial encounter (principal); S80.02XA Contusion of left knee, initial encounter; S80.01XA Contusion of right knee, initial encounter; E11.9 Type 2 diabetes mellitus without complications; I10 Essential (primary) hypertension; Z79.84 Long term (current) use of oral hypoglycemic drugs; Z79.899 Other long term (current) drug therapy; V03.99XA Pedestrian with other conveyance injured in collision with car, pick-up truck or van, unspecified whether traffic or nontraffic accident, initial encounter; Y93.01 Activity, walking, marching and hiking; Y92.481 Parking lot as the place of occurrence of the external cause; Y99.8 Other external cause status
CPT/HCPCS: 72131